=== PATIENT | male | born 1960 | race Caucasian/White ===

== ENCOUNTER 2017-08-06 10:59 | Emergency (ER) | payer OTHER ==
[~2017-08-06] VITALS: Ht 165.1 cm; Wt 86.2 kg
[2017-08-06 14:24] VITALS: BP 138/86
== END 2017-08-06 14:24 | disposition home or self-care (01) ==
LOC: ED 10:59
DX: R20.2 Paresthesia of skin (principal); Z88.8 Allergy status to other drugs, medicaments and biological substances
CPT/HCPCS: Q0092

== ENCOUNTER 2018-01-22 12:16 | Emergency (ER) | payer OTHER ==
[~2018-01-22] VITALS: Ht 165.1 cm; Wt 80.7 kg
[2018-01-22 14:05] VITALS: BP 148/95
== END 2018-01-22 14:05 | disposition home or self-care (01) ==
LOC: ED 12:16
DX: M45.9 Ankylosing spondylitis of unspecified sites in spine (principal); Z88.6 Allergy status to analgesic agent
CPT/HCPCS: J7030; Q0092